=== PATIENT | male | born 1955 | race Caucasian/White ===

== ENCOUNTER → 2019-04-14 | Outpatient (CLI) | payer BC ==
[2019-04-14 17:50] LABS: African American GFR (CKD) 93.7 (60.0-200.0); Albumin 4.6 g/dL (3.80-4.90); Albumin/Globulin Ratio 2.56 (1.60-3.17); Calcium 9.4 mg/dL (8.7-10.3); Chol/HDL Ratio 3.84; Globulin 1.8 g/dL (1.6-3.3); LDL Cholesterol,Calculated 73.2 mg/dL (0.0-131.0); Potassium 4.7 mmol/L (3.5-5.5); Total Bilirubin 0.5 mg/dL (0.2-1.2); Total Protein 6.4 g/dL (6.2-8.2); VLDL Calculation 34.8 mg/dL (5.00-40.00)
== END | disposition home or self-care (01) ==
LOC: LABWHC1 09:38
PROVIDERS: ATTEND Internal Medicine Interventional Cardiology
DX: E78.2 Mixed hyperlipidemia (principal)
CPT/HCPCS: 36415; 80053; 80061

== ENCOUNTER → 2019-04-21 | Outpatient (CLI) | payer BC ==
[2019-04-21 13:20] LABS: HGB 13.6 gm/dL (13.0-17.5); MCH 31.3 pg (25.0-35.0); MCHC 34.9 g/dL (31.0-37.0); MCV 89.5 fL (80.0-100.0); Mean Platelet Volume 6.3; Platelet Count 121 k/uL (150-450); RBC 4.36 m/uL (4.30-5.90); RDW 13.1 % (11.5-15.5); WBC 5.3 k/uL (3.8-10.6)
[2019-04-21 13:40] LABS: INR 0.9 (<1.2); Prothrombin Time 10.2 sec (9.0-12.0)
[2019-04-21 13:44] LABS: ALT 142 U/L (21-72); AST 116 U/L (17-59); African American GFR (CKD) >90 (>60 ml/min/1.73 sqM); Albumin 4.4 g/dL (3.5-5.0); Alkaline Phosphatase 73 U/L (38-126); Anion Gap 11 mmol/L; Blood Urea Nitrogen 12 mg/dL (9-20); Calcium 9.7 mg/dL (8.4-10.2); Carbon Dioxide 27 mmol/L (22-30); Chloride 102 mmol/L (98-107); Glucose 107 mg/dL (74-99); Potassium 4.4 mmol/L (3.5-5.1); Sodium 140 mmol/L (137-145); Total Bilirubin 0.5 mg/dL (0.2-1.3); Total Protein 7.3 g/dL (6.3-8.2)
[2019-04-21 13:51] LABS: Partial Thromboplastin Time 21.2 sec (22.0-30.0)
[2019-04-21 14:12] LABS: Appearance,Urine Clear (Clear); Bilirubin,Urine Negative (Negative); Blood,Urine Negative (Negative); Color,Urine Yellow; Glucose,Urine (UA) Negative (Negative); Ketones,Urine Negative (Negative); Leukocyte Esterase,Urine Negative (Negative); Nitrite,Urine Negative (Negative); PH, Urine 5.5 (5.0-8.0); Protein,Urine Negative (Negative); Specific Gravity,Urine 1.013 (1.001-1.035); Urobilinogen,Urine <2.0 mg/dL (<2.0)
== END | disposition home or self-care (01) ==
LOC: LABPAT 12:09
PROVIDERS: ATTEND Orthopaedic Surgery
DX: Z01.812 Encounter for preprocedural laboratory examination (principal); M16.12 Unilateral primary osteoarthritis, left hip
CPT/HCPCS: 36415; 80053; 81003; 85027; 85610; 85730; 87070

== ENCOUNTER 2019-04-28 05:35 | Inpatient (IN) | payer BC ==
[2019-04-23 08:54] VITALS: BMI 46.8
[~2019-04-28 05:35] MED LIST: ACETAMINOPHEN TAB 500 MG TAB PO ONE; GABAPENTIN 300 MG CAP PO ONE; HYDROmorphone 0.5 MG/0.5 ML SYRINGE IVP PRN; MELOXICAM 7.5 MG TAB PO ONE; MIDAZOLAM 2 MG/2 ML VIAL IV PRN; ONDANSETRON 4 MG/2 ML VIAL IVP ONE; TRANEXAMIC ACID 1,000 MG in SODIUM CHLORIDE 0.9% 100 ML IVPB ONE
[2019-04-28] MEDS ORDERED: ceFAZolin 3 GM in SODIUM CHLORIDE 0.9% 100 ML IVPB ONE (06:00)
[2019-04-28] MEDS ORDERED: ROPIVACAINE 246.25 MG, EPINEPHrine 0.5 MG, KETOROLAC 30 MG, cloNIDine HCL/PF 80 MCG, WA... MISCELLANE ONE ×5 (06:00)
[2019-04-28 06:23] LABS: Glucose,Whole Blood 140 mg/dL (75-99)
[2019-04-28] MEDS: LACTATED RINGERS 1,000 ML IV SCH (06:25)
[2019-04-28] MEDS ORDERED: MIDAZOLAM 2 MG/2 ML VIAL ONE (06:56)
[2019-04-28] MEDS ORDERED: HEPARIN SODIUM,PORCINE 10,000 UNIT/ML 1 ML VIAL ONE (06:56)
[2019-04-28] MEDS ORDERED: TRANEXAMIC ACID 1,000 MG/10 ML VIAL ONE (06:56)
[2019-04-28] MEDS ORDERED: ePHEDrine SULFATE/0.9% NACL/PF 50 MG/5 ML SYRINGE IV ONE (06:56)
[2019-04-28] MEDS ORDERED: SODIUM CHLORIDE 0.9% 100 ML BAG ONE (06:56)
[2019-04-28] MEDS ORDERED: SODIUM CHLORIDE 0.9% IRRIG 1,000 ML BTL IRRIGATION ONE (06:56)
[2019-04-28] MEDS ORDERED: ceFAZolin 3,000 MG in SODIUM CHLORIDE 0.9% IRRIGATIO 3,000 ML IRRIGATION ONE (07:00)
[2019-04-28] MEDS ORDERED: MAGNESIUM HYDROXIDE 2,400 MG/10 ML CUP PO PRN (07:02)
[2019-04-28] MEDS ORDERED: DIAZEPAM 5 MG TAB PO PRN (07:02)
[2019-04-28] MEDS ORDERED: hydrOXYzine PAMOATE 25 MG CAP PO PRN (07:02)
[2019-04-28] MEDS ORDERED: HYDROcodone/APAP 5-325MG 1 EACH TAB PO PRN (07:02)
[2019-04-28] MEDS ORDERED: NALOXONE 0.4 MG/ML 1 ML VIAL IV PRN (07:02)
[2019-04-28] MEDS ORDERED: HYDROmorphone 1 MG/ML 1 ML SYRINGE IVP PRN (07:02)
[2019-04-28] MEDS ORDERED: HYDROmorphone 0.5 MG/0.5 ML SYRINGE IVP PRN (07:02)
[2019-04-28] MEDS ORDERED: ONDANSETRON 4 MG/2 ML VIAL IVP PRN (07:02)
[2019-04-28] MEDS ORDERED: LACTATED RINGERS 1,000 ML IV ONE (08:41)
--- NOTE | 2019-04-28 09:11 | P.OP ---
Date of Procedure: 04/28/19 Preoperative Diagnosis: Severe osteoarthritis left hip Postoperative Diagnosis: Severe osteoarthritis left hip Procedure(s) Performed: Left total hip arthroplasty with a direct anterior approach Implants: Cueto and nephew Polarstem size 5 collared Cueto [employer] Nephew R3, 3 hole acetabular shell, 52 mm Cueto [employer] Nephew reflection 6.5 mm cancellus screw, 20 mm 2 Cueto [employer] Nephew R3, XLPE 20 acetabular liner Cueto [employer] Nephew Oxinium femoral head 36 m, +0 All components were press-fit. The articulation is Oxinium on polyethylene. Anesthesia: spinal Surgeon: Doug Middleton Physician Pediatrician #1: Tejal Sam Estimated Blood Loss (ml): 450 (205 mL returned with Cell Saver) Pathology: other (Femoral head) Condition: stable Disposition: PACU Indications for Procedure: After failure of conservative treatment we discussed the surgical and nonsurgical treatment options at length. Patient wishes to proceed with a total hip arthroplasty with a direct anterior approach. Complications specific to this procedure were discussed at length, including but not limited to infection, leg length discrepancy, dislocation, and nerve injury. Patient is aware of all these complications and informed consent was obtained Operative Findings: The operative findings are consistent with severe osteoarthritis of the left hip Description of Procedure: Patient was seen and evaluated in the preoperative area, consent was reviewed, and the surgical site was marked with a skin marker. Patient was then brought to the operating room and given prophylactic antibiotics intravenously. 1 g of Tranexamic acid was also given. A spinal anesthetic was administered by the anesthesia department. The patient was then placed on the [place] table with the bony prominences well-padded. The hip area was then prepped and draped in usual sterile fashion. A universal timeout was then performed, which confirmed the patient's name, surgical site, ALLERGIES, and procedure being performed. Next the incision site was located at 1 cm distal and 1 cm lateral to the anterior superior iliac spine. The skin and subcutaneous tissues were sharply incised. Incision was carefully dissected down to the fascia overlying the tensor fascia srinivasa muscle. This fascia was then incised in line with the incision. Next, using blunt finger dissection, the tensor fascia srinivasa muscle was dissected off its investing fascia. The muscle was then carefully retracted laterally with a cobra retractor over the lateral neck of the femur. Next, the circumflex vessels were identified and cauterized using the AquaMantis device. The anterior hip capsule was then exposed. The capsule was then opened and an inverted T fashion. Cobra retractors were then placed intracapsularly. The proximal femur was then vis ualized. The femoral neck was then osteotomized appropriate level above the lesser trochanter. Small amount of traction was placed with the [place] table. A small wedge of bone was then removed from the remaining femoral head. Next, using a corkscrew femoral head was easily removed from the acetabulum. On gross visual inspection, the femoral head had complete loss of articular cartilage in multi ple periarticular osteophytes. Attention was then turned to the acetabulum. the acetabulum was exposed and any remaining labrum was excised. Sequential reaming of the acetabulum was performed using fluoroscopic guidance. When the appropriate size was reached, a trial was then placed. The position and fit of the trial was checked with fluoroscopy. The trial was then removed. Then, using fluoroscopic guidance, the final implant was impacted at 20 of anteversion and 40 of abduction, and fully seated in the acetabulum. 2 screws were then placed in the acetabulum. Again fluoroscopy was used to check position of the screws. Next, the liner was then impacted, with a 20 elevated liner located in the anterior superior quadrant. Component locking was confirmed. Attention was then directed to the femur. With the aid of the [place] table, the femur was externally rotated to approximately 130, extended, and abducted under the opposite leg. A side hook was then placed under the proximal femur, and the side hook elevator was used to elevate the proximal femur. Retractors were then placed. A capsular release was performed, as well as a release of the conjoined tendon, which afforded excellent visualization of the proximal femur. Next, a box osteotome was used to lateralize the proximal femur. A hollow handle bench worker was then used to locate the femoral canal. Sequential broaching was then performed with appropriate size which afforded excellent fixation in the proximal femur. A trial was then placed with appropriate head and neck, and the hip was gently reduced with the aid of the [place] table. Fluoroscopy was then used to check position of the components, as well as to ensure equal leg lengths. The hip was then gently dislocated and the trials were then removed. Final implants were then impacted and the hip was again reduced. Final fluoroscopic x-rays confirmed that the components were in anatomic position, as well as equal leg lengths. The hip was also taken through range of motion, and found to be stable. The hip was then copiously irrigated with antibiotic solution with pulsatile lavage. The hip was then irrigated with Irrisept solution. The soft tissues were then injected with a ropivacaine solution, which consisted of 246.25 mg of ropivacaine, 0.5 mg of epinephrine, 30 mg of Toradol, 80 g of clonidine, and 48.45 mL of sterile water, for a total of 100 mL of fluid injected. A second dose of 1 g of Tranexamic acid was also given. the fascia was then closed with 2-0 strata fix suture. The subcutaneous tissue was closed with 3-0 Vicryl. The subcuticular tissue was closed with 3-0 strata fix suture. The skin was then closed with Dermabond glue and a sterile silver dressing. The patient was then transferred to the recovery room in stable condi tion. The printing assistant PATRICIA Singleton was required due to the complexity of surgery, and the need for skilled certified surgical first assistant for positioning, draping, exposure, retraction, and closure of the wound.
--- NOTE | 2019-04-28 09:48 | XR ---
EXAMINATION TYPE: XR Hip Limited LT DATE OF EXAM: 04/28/2019 CLINICAL HISTORY: Left hip pain and osteoarthritis. TECHNIQUE: Single AP portable view of left hip is obtained immediately postoperatively. COMPARISON: None. FINDINGS: Metallic hardware from left hip arthroplasty is seen and appears satisfactory in alignment and position. There is evidence of recent surgery with soft tissue swelling noted laterally. IMPRESSION: Metallic hardware from left hip arthroplasty is satisfactory in position.
[2019-04-28 12:18] LABS: Glucose,Whole Blood 166 mg/dL (75-99)
[2019-04-28] MEDS: INSULIN ASPART (NovoLOG) 100 UNIT/ML VIAL SQ SCH ×3 (12:22→19:54)
[2019-04-28] MEDS: HYDROmorphone 0.5 MG/0.5 ML SYRINGE IVP PRN ×2 (13:20→20:10)
--- NOTE | 2019-04-28 13:22 | XR ---
Limited left hip HISTORY: Anterior hip arthroplasty 2 intraoperative C-arm images document the procedure.
--- NOTE | 2019-04-28 13:32 | FL ---
Fluoroscopy HISTORY: Anterior hip arthroplasty 53 seconds fluoroscopy time supplied to the referring clinician. 2 intraoperative C-arm images docum ent the procedure. See dictated report from orthopedic surgery.
[2019-04-28 16:54] LABS: Glucose,Whole Blood 149 mg/dL (75-99)
[2019-04-28] MEDS: ceFAZolin 3 GM in SODIUM CHLORIDE 0.9% 100 ML IVPB SCH ×2 (17:05→23:13)
[2019-04-28] MEDS: CARVEDILOL 3.125 MG TAB PO SCH (17:05)
[2019-04-28] MEDS: HYDROcodone/APAP 5-325MG 1 EACH TAB PO PRN ×2 (17:05→22:45)
[2019-04-28] MEDS: SODIUM CHLORIDE 0.9% 1,000 ML IV SCH ×2 (17:06→20:19)
--- NOTE | 2019-04-28 19:51 | CONS ---
CONSULTATION DATE OF SERVICE: 04/28/2019 REASON FOR CONSULTATION: Advice regarding diabetes mellitus and other multiple medical problems, requested by Dr. Middleton. HISTORY OF PRESENT ILLNESS: This 63-year-old gentleman with a past medical history of CAD, history of diabetes mellitus, type 2, GERD, hypertension, hyperlipidemia, history of sleep apnea, being followed by an oven roaster in the [place] area, underwent left total hip joint arthroplasty by Dr. Middleton. The patient tolerated the procedure well. There is no history of any fever, rigor or chills. No history of headache, loss of consciousness, seizures, chest pain, palpitations at this time. PAST MEDICAL HISTORY: 1. History of CAD. 2. Diabetes mellitus. 3. GERD. 4. Hypertension. 5. Hyperlipidemia. 6. History of myocardial infarction. 7. Sleep apnea. 8. History of CAD, stent. HOME MEDICATIONS: 1. Glucophage 1000 mg p.o. b.i.d. 2. Zocor 40 mg at bedtime. 3. Altace 10 mg at bedtime. 4. Aleve 220 mg p.o. daily. 5. Procardia XL 30 mg p.o. at bedtime. 6. Claritin 10 mg p.o. daily. 7. Prevacid 15 mg p.o. daily. 8. Tresiba 100 units subcutaneously at bedtime. 9. NovoLog b.i.d. p.r.n. 10.Coreg 3.125 mg p.o. b.i.d. 11.Ecotrin 81 mg p.o. daily. 12.Senokot 1 tablet p.o. b.i.d. 13.Aspirin 325 mg p.o. b.i.d. ALLERGIES: VICTOZA. FAMILY HISTORY: History of DVT, skin cancer. SOCIAL HISTORY: Previous history of smoking. No current smoking or alcohol intake. REVIEW OF SYSTEMS: ENT: No diminished hearing. No diminished vision. CARDIOVASCULAR SYSTEM: No angina, palpitations. RESPIRATORY SYSTEM: No cough, hemoptysis. GI: No nausea, vomiting. : No dysuria or retention. NERVOUS SYSTEM: No numbness, weakness. ALLERGY/IMMUNOLOGY: No asthma, hayfever. MUSCULOSKELETAL: As mentioned earlier. HEMATOLOGY/ONCOLOGY: No history of anemia. ENDOCRINE: As mentioned earlier. CONSTITUTIONAL: As mentioned earlier. DERMATOLOGY: Negative. RHEUMATOLOGY: Negative. PSYCHIATRY: As mentioned earlier. PHYSICAL EXAMINATION: Patient alert and oriented x3. Pulse is 76, blood pressure 106/57, respiration 14, temperature 97.7, pulse ox 94% on 3 L. HEENT: Conjunctivae normal. Oral mucosa moist. NECK: No jugular venous distention. No carotid bruit. No lymph node enlargement. CARDIOVASCULAR SYSTEM: S1, S2 muffled. No S3. No S4. RESPIRATORY SYSTEM: Breath sounds diminished at the bases. No rhonchi. No crackles. ABDOMEN: Soft, non-tender. No mass palpable. LEGS: Status post hip arthroplasty. NERVOUS SYSTEM: Higher functions as mentioned earlier. Moves all 4 limbs. No focal motor or sensory deficit. LYMPHATICS: No lymph node palpable in neck, axillae or groin. SKIN: No ulcer, rash, bleeding. JOINTS: No active deforming arthropathy. LABS: Labs at this time show Accu-Cheks 143, 166. The preoperative labs are hematology, platelets are 121. Otherwise AST was 116, ALT was 142. ASSESSMENT: 1. Status post left total hip joint arthroplasty. 2. Diabetes mellitus, type 2. 3. Mild thrombocytopenia in the preoperative labs. 4. Increased AST, ALT history. 5. History of coronary artery disease, stent. 6. Gastroesophageal reflux disease. 7. Hypertension. 8. Hyperlipidemia. 9. Myocardial infarction. 10.Obstructive sleep apnea. 11.History of diabetic peripheral neuropathy. 12.History of carpal tunnel syndrome. 13.Remote history of nicotine dependence. 14.Obesity with body mass index of 47.1. RECOMMENDATIONS AND DISCUSSION: In this 63-year-old gentleman who presented with multiple complex medical issues, we will monitor the patient closely, continue the current management, continue with symptomatic treatment. I recommend resuming the home dose of diabetes and monitor Accu-Cheks closely. I would also recommend resuming the home medications. I recommend repeat labs, CBC and CMP in the morning, to ensure stability. Otherwise, we will follow the patient closely with you. DVT prophylaxis. Incentive spirometry. Patient may be asked to follow with a primary physician closely in the outpatient setting. Thank you, Dr. Middleton, for letting us participate in the care of this patient. MMODL / IJN: [id number] / MTDChun
[2019-04-28] MEDS: ASPIRIN 325 MG TAB PO SCH (20:11)
[2019-04-28] MEDS: metFORMIN 500 MG TAB PO SCH (20:11)
[2019-04-28 20:14] LABS: Glucose,Whole Blood 112 mg/dL (75-99)
[2019-04-28] MEDS ORDERED: SENNOSIDES-DOCUSATE SODIUM 1 EACH TAB PO SCH (21:00)
[2019-04-28] MEDS ORDERED: LISINOPRIL 20 MG TAB PO SCH (21:00)
[2019-04-28] MEDS ORDERED: ATORVASTATIN 20 MG TAB PO SCH (21:00)
[2019-04-28] MEDS ORDERED: INSULIN DETEMIR (LEVEMIR) 100 UNIT/ML SYR SQ SCH (21:00)
[2019-04-28] MEDS ORDERED: FAMOTIDINE 20 MG TAB PO SCH (21:00)
[2019-04-28] MEDS ORDERED: NIFEdipine XL 30 MG TAB.ER.24 PO SCH (21:00)
[2019-04-29] MEDS: LACTATED RINGERS 1,000 ML IV SCH (02:32)
[2019-04-29] MEDS: HYDROmorphone 0.5 MG/0.5 ML SYRINGE IVP PRN (03:37)
[2019-04-29] MEDS: HYDROcodone/APAP 5-325MG 1 EACH TAB PO PRN (05:43)
[2019-04-29 07:06] LABS: Glucose,Whole Blood 105 mg/dL (75-99)
[2019-04-29] MEDS ORDERED: PANTOPRAZOLE 40 MG TABLET PO SCH (07:30)
[2019-04-29 08:04] LABS: Basophils % (A) 0 %; Eosinophils # (A) 0.1 k/uL (0-0.7); Eosinophils % (A) 1 %; HCT 35.8 % (39.0-53.0); HGB 11.6 gm/dL (13.0-17.5); Lymphocytes # (A) 1.1 k/uL (1.0-4.8); Lymphocytes % (A) 15 %; MCHC 32.5 g/dL (31.0-37.0); Mean Platelet Volume 6.2; Monocytes # (A) 0.6 k/uL (0-1.0); Monocytes % (A) 8 %; Neutrophils # (A) 5.1 k/uL (1.3-7.7); Neutrophils % (A) 73 %; Platelet Count 121 k/uL (150-450); RBC 3.74 m/uL (4.30-5.90); RDW 13.5 % (11.5-15.5)
[2019-04-29] MEDS ORDERED: HYDROcodone/APAP 7.5-325MG 1 EACH TAB PO PRN ×2 (08:04)
--- NOTE | 2019-04-29 08:08 | P.DS ---
Providers Date of admission: 04/28/19 05:35 Expected date of discharge: 04/29/19 Attending physician: Doug Middleton Consults: 04/28/19 07:02 Consult Physician Routine Consulting Provider: Shaka Painting Consult Reason/Comments: medical management Do you want consulting provider notified?: Yes Primary care physician: Stated None - Discharge Diagnosis(es) (1) Osteoarthritis of left hip Current Visit: Yes Status: Acute (2) S/P total hip arthroplasty Current Visit: Yes Status: Acute Hospital Course: This is a 63-year-old male with known history of degenerative arthritis of the left hip. The patient presents for evaluation. After discussion and consideration patient elects to proceed with total hip arthroplasty. The patient is seen preoperatively by Dr. Middleton and medically cleared for surgery by their primary care physician. Patient is admitted to [facility] on 04/28/2019 for total hip arthroplasty. The procedures performed without complication or sequelae. The patient is doing well postoperatively. Labs and vital signs are stable on day of discharge. On day of discharge patient's hip incision is healing well. There is minimal erythema. There is no drainage noted at this time. There is minimal soft tissue swelling to the hip and thigh. Patient has full foot and ankle motion without difficulty or pain. Calf is soft and nontender to palpation. Neurovascular status to the left lower extremity is intact. Patient is discharged home in good condition. Opioid start talking form is reviewed and signed at patient bedside. Please see med rec for accurate list of home medications. Plan - Discharge Summary Discharge Rx Participant: Yes New Discharge Prescriptions: New Aspirin 325 mg PO BID #60 tab Sennosides [Senokot] 1 tab PO BID #60 tablet HYDROcodone/APAP 7.5-325MG [[place] 7.5-325] 1 - 2 tab PO Q6H PRN #56 tab PRN Reason: Pain No Action Simvastatin [Zocor] 40 mg PO HS Insulin Degludec [Tresiba] 100 units SQ HS Insulin Aspart [NovoLOG] 0 units SQ BID PRN PRN Reason: diabetes Ramipril [Altace] 10 mg PO HS NIFEdipine XL [Procardia Xl] 30 mg PO HS Aspirin [Adult Low Dose Aspirin EC] 81 mg PO DAILY metFORMIN HCL [Glucophage] 1,000 mg PO BID Naproxen Sodium [Aleve] 220 mg PO DAILY Loratadine [Claritin] 10 mg PO DAILY Lansoprazole [Prevacid] 15 mg PO DAILY Carvedilol [Coreg] 3.125 mg PO BID Discharge Medication List Aspirin [Adult Low Dose Aspirin EC] 81 mg PO DAILY 04/23/19 [History] Carvedilol [Coreg] 3.125 mg PO BID 04/23/19 [History] Insulin Aspart [NovoLOG] 0 units SQ BID PRN 04/23/19 [History] Insulin Degludec [Tresiba] 100 units SQ HS 04/23/19 [History] Lansoprazole [Prevacid] 15 mg PO DAILY 04/23/19 [History] Loratadine [Claritin] 10 mg PO DAILY 04/23/19 [History] NIFEdipine XL [Procardia Xl] 30 mg PO HS 04/23/19 [History] Naproxen Sodium [Aleve] 220 mg PO DAILY 04/23/19 [History] Ramipril [Altace] 10 mg PO HS 04/23/19 [History] Simvastatin [Zocor] 40 mg PO HS 04/23/19 [History] metFORMIN HCL [Glucophage] 1,000 mg PO BID 04/23/19 [History] Aspirin 325 mg PO BID #60 tab 04/28/19 [Rx] Sennosides [Senokot] 1 tab PO BID #60 tablet 04/28/19 [Rx] HYDROcodone/APAP 7.5-325MG [[place] 7.5-325] 1 - 2 tab PO Q6H PRN #56 tab 04/29/19 [Rx] Follow up Appointment(s)/Referral(s): Doug Middleton DO [Doctor of Osteopathic Medicine] - 2 Weeks Activity/Diet/Wound Care/Special Instructions: Weightbearing as tolerated with walker. Leave dressing intact. Dressing may be removed by home care nurse or by patient in 10 days. May shower with dressing on. Recommend use of compression stockings daily for at least 2 weeks during the day to help prevent swelling and blood clots. May remove at night before sleeping. Please follow-up with [facility] in 2 weeks and call with any questions or concerns, . Discharge Disposition: HOME WITH HOME HEALTH SERVICES
[2019-04-29 08:16] LABS: MCV 95.6 fL (80.0-100.0)
[2019-04-29] MEDS: INSULIN ASPART (NovoLOG) 100 UNIT/ML VIAL SQ SCH ×2 (08:24→12:08)
[2019-04-29] MEDS: metFORMIN 500 MG TAB PO SCH (08:34)
[2019-04-29] MEDS: ASPIRIN 325 MG TAB PO SCH (08:34)
[2019-04-29] MEDS: CARVEDILOL 3.125 MG TAB PO SCH (08:35)
[2019-04-29] MEDS ORDERED: MELOXICAM 7.5 MG TAB PO SCH (09:00)
[2019-04-29] MEDS ORDERED: NON FORMULARY DRUG (Aspirin [Adult Low Dose Aspirin Ec] 81 MG) PO SCH (09:00)
[2019-04-29] MEDS ORDERED: LORATADINE 10 MG TAB PO SCH (09:00)
[2019-04-29 09:07] VITALS: BP 112/59; PULSE 83; RESP 12; TEMP 97.3
[2019-04-29] MEDS: SODIUM CHLORIDE 0.9% 1,000 ML IV SCH (10:32)
[2019-04-29 11:26] LABS: Glucose,Whole Blood 252 mg/dL (75-99)
--- NOTE | 2019-04-29 14:51 | P.PN ---
Subjective Progress Note Date: 04/29/19 Principal diagnosis: This is a 63-year-old male who underwent left total hip joint arthroplasty with Dr. Middleton and was consulted for diabetes mellitus and other medical problems and was being closely monitored. Patient is sitting up in the chair in no acute distress today. Patient states that he is going home and will be receiving home care for continued PT/OT. Patient denies any chest pain, shortness of breath, or palpitations at this time. Patient is afebrile. Patient denies any nausea or vomiting and is tolerating diet. Patient's blood sugars continue to be slig htly elevated but have been baseline according to patient. Discussed with the patient at length about continuing to monitor blood sugars before meals at bedtime and to keep a diary for primary care for provider follow-up. Patient agrees with this plan. Patient will continue on current insulin regimen and monitor sugars closely. Patient states he will be following up with primary care provider upon discharge. No acute overnight issues. Guarded prognosis. Objective - Vital Signs Vital signs: Vital Signs Temp 97.3 F L 04/29/19 07:00 Pulse 83 04/29/19 07:00 Resp 12 04/29/19 07:00 BP 112/59 04/29/19 07:00 Pulse Ox 96 04/29/19 07:00 Intake & Output 04/28/19 04/29/19 04/29/19 18:59 06:59 18:59 Intake Total 1441 1440 420 Output Total 450 Balance 991 1440 420 Intake: IV 1201 Oral 240 1440 420 Output: Estimated Blood Loss 450 Other: Voiding Method Toilet Urinal # Voids 1 1 - Exam Gen: This is a 63-year-old male sitting up in the chair in no acute distress. Vital signs are stable. HEENT: Head is atraumatic, normocephalic. Pupils equal, round. Sclerae is anicteric. NECK: Supple. No JVD. No lymphadenopathy. No thyromegaly. LUNGS: Diminished breath sounds at the bases with No wheezes or rhonchi noted. No intercostal retractions. HEART: Cardio S1 and S2 are muffled. No murmur. ABDOMEN: Soft. Obese. Bowel sounds are present. No masses. No tenderness. EXTREMITIES: No pedal edema. No calf tenderness. Left hip dressing status post arthroplasty is dry and intact NEUROLOGICAL: Patient is awake, alert and oriented x3. Cranial nerves 2 through 12 are grossly intact. - Labs CBC & Chem 7: 04/29/19 07:28 Labs: Abnormal Lab Results - Last 24 Hours (Table) 04/28/19 04/28/19 04/29/19 Range/Units 16:52 19:53 07:04 RBC (4.30-5.90) m/uL Hgb (13.0-17.5) gm/dL Hct (39.0-53.0) % Plt Count (150-450) k/uL POC Glucose (mg/dL) 149 H 112 H 105 H (75-99) mg/dL 04/29/19 04/29/19 Range/Units 07:28 11:11 RBC 3.74 L (4.30-5.90) m/uL Hgb 11.6 L (13.0-17.5) gm/dL Hct 35.8 L (39.0-53.0) % Plt Count 121 L (150-450) k/uL POC Glucose (mg/dL) 252 H (75-99) mg/dL Assessment and Plan Assessment: Status post left total hip joint arthroplasty Diabetes mellitus, type II Mild thrombocytopenia in the preoperative labs Increased AST, ALTs history History of coronary artery disease, stent GERD Hypertension Hyperlipidemia Myocardial infarction Obstructive sleep apnea History of diabetic peripheral neuropathy History of carpal tunnel syndrome Remote history of nicotine dependence Obesity with body mass index of 47.1 Recommendations and discussion: Recommend continue current medications, management, and symptomatic treatment. Discussed with the patient at length about continuing to monitor blood sugars closely before meals at bedtime and keep a diary for primary care provider foll ow-up. Encourage the patient to follow a heart healthy, diabetic diet. Per orthopedic surgery patient will be going home today. Guarded prognosis. Will continue to follow closely. Further recommendations to follow.
--- NOTE | 2019-04-29 17:48 | PN ---
PROGRESS NOTE DATE OF SERVICE: 04/29/2019 This 63-year-old gentleman who underwent left total hip joint arthroplasty is improving significantly. No chest pain. No palpitations. No fever. Blood sugar has been maintained 100s yesterday. No chest pain. No palpitations. No fever. On exam, alert and oriented x3. Pulse is 83, blood pressure 112/59, respiration 12, temperature 97.3, pulse ox 96% on room air. HEENT: Conjunctivae normal. NECK: No jugular venous distention. CARDIOVASCULAR SYSTEM: S1, S2 muffled. RESPIRATORY SYSTEM: Breath sounds diminished at the bases. No rhonchi. No crackles. ABDOMEN: Soft. LEGS: Status post surgery. NERVOUS SYSTEM: No focal deficit. LABS: WBC 7, hemoglobin 11.6. Accu-Cheks noted. ASSESSMENT: 1. Status post left total hip joint arthroplasty. 2. Diabetes mellitus, type 2. 3. Mild thrombocytopenia in the preoperative labs. 4. Increased AST, ALT history. 5. History of coronary artery disease, stent. 6. Gastroesophageal reflux disease. 7. Hypertension. 8. Hyperlipidemia. 9. History of myocardial infarction. 10.History of obstructive sleep apnea. 11.History of diabetic peripheral neuropathy. 12.Carpal tunnel syndrome. 13.Remote history of nicotine dependence. 14.Obesity with body mass index of 47.1. RECOMMENDATIONS AND DISCUSSION: In this 63-year-old gentleman who was admitted after surgery, at this time I recommend to continue the current medication, continue symptomatic treatment. Monitor blood sugars closely. Otherwise, closely follow up with primary physician and oracle ebs architect. Further recommendations to follow. MMODL / IJN: [id number] /
== END 2019-04-29 14:41 | disposition home health service (06) | DRG 470 ==
LOC: 2ORMAIN 05:35 → 4SSUR 09:21
PROVIDERS: ADMIT Orthopaedic Surgery; ATTEND Orthopaedic Surgery
PROC: 30233N0 Transfusion of Autologous Red Blood Cells into Peripheral Vein, Percutaneous Approach (ICD-10-PCS; 2019-04-28)
PROC: 0SRB06A Replacement of Left Hip Joint with Oxidized Zirconium on Polyethylene Synthetic Substitute, Uncemented, Open Approach (ICD-10-PCS; principal; 2019-04-28 07:00)
DX: M16.12 Unilateral primary osteoarthritis, left hip (principal); Z68.42 Body mass index [BMI] 45.0-49.9, adult; D69.59 Other secondary thrombocytopenia; E11.42 Type 2 diabetes mellitus with diabetic polyneuropathy; E66.9 Obesity, unspecified; E78.5 Hyperlipidemia, unspecified; G47.33 Obstructive sleep apnea (adult) (pediatric); G56.00 Carpal tunnel syndrome, unspecified upper limb; I10 Essential (primary) hypertension; I25.10 Atherosclerotic heart disease of native coronary artery without angina pectoris; I25.2 Old myocardial infarction; K21.9 Gastro-esophageal reflux disease without esophagitis; Z95.5 Presence of coronary angioplasty implant and graft; Z79.82 Long term (current) use of aspirin; Z79.899 Other long term (current) drug therapy; Z79.4 Long term (current) use of insulin; Z87.891 Personal history of nicotine dependence; Z88.8 Allergy status to other drugs, medicaments and biological substances; Z80.8 Family history of malignant neoplasm of other organs or systems; Z82.49 Family history of ischemic heart disease and other diseases of the circulatory system; Z83.3 Family history of diabetes mellitus
CPT/HCPCS: 73501; 85025; 86850; 86891; 86900; 86901; 88300